=== PATIENT | female | born 1995 | race Caucasian/White ===

== ENCOUNTER 2017-03-18 21:50 | Outpatient (CLI) | payer MEDICAID ==
[2017-03-18 22:41] LABS: APPEARANCE,URINE CLEAR; BILIRUBIN,URINE NEGATIVE (NEGATIVE); GLUCOSE, URINE NEGATIVE (NEGATIVE); KETONES,URINE 80 mg/dL (NEGATIVE); LEUKOCYTE ESTERASE,URINE NEGATIVE (NEGATIVE); NITRITE,URINE NEGATIVE (NEGATIVE); PROTEIN,URINE NEGATIVE (NEGATIVE); URINE SPECIFIC GRAVITY 1.004; UROBILINOGEN,URINE NEGATIVE mg/dL (<2.0)
[2017-03-18 22:58] LABS: URINE BARBITURATES SCREEN NEGATIVE; URINE METHADONE SCREEN NEGATIVE; URINE OPIATES LOW NEGATIVE; URINE PHENCYCLIDINE SCREEN NEGATIVE
[2017-03-18] MEDS ORDERED: ONDANSETRON HCL INJ/PF 4 MG/2 ML SDV IV ONE (23:04)
[2017-03-18] MEDS ORDERED: RINGERS SOLUTION,LACTATED 1,000 ML IV PRN (23:04)
[2017-03-18] MEDS ORDERED: ONDANSETRON HCL INJ/PF 4 MG/2 ML SDV ONE (23:23)
== END 2017-03-19 00:51 | disposition home or self-care (01) ==
LOC: LC 21:50
PROVIDERS: ATTEND Obstetrics & Gynecology
PROC: 4A1HXCZ Monitoring of Products of Conception, Cardiac Rate, External Approach (ICD-10-PCS; principal; 2017-03-18)
DX: O26.892 Other specified pregnancy related conditions, second trimester (principal); R10.9 Unspecified abdominal pain; Z3A.20 20 weeks gestation of pregnancy
CPT/HCPCS: 59899; 81001; 80307; J2405

== ENCOUNTER 2017-07-30 03:33 | Inpatient (IN) | payer MEDICAID ==
[2017-07-30] MEDS ORDERED: RINGERS SOLUTION,LACTATED 300 ML IV ONE (03:51)
[2017-07-30] MEDS ORDERED: RINGERS SOLUTION,LACTATED 1,000 ML IV PRN (03:51)
[2017-07-30] MEDS ORDERED: DINOPROSTONE 10 MG VAGINAL INSERT.SR PV PRN (03:51)
[2017-07-30 04:40] LABS: ABSOLUTE EOSINOPHILS # (AUTO) 0.1 10^3/uL (0.0-0.6); ABSOLUTE LYMPHOCYTES (AUTO) 1.9 10^3/uL (0.5-4.7); ABSOLUTE MONOCYTES (AUTO) 0.7 10^3/uL (0.1-1.4); ABSOLUTE NEUT (AUTO) 4.9 10^3/uL (1.7-8.2); BASOPHILS % (AUTO) 0.4 % (0-2); HEMATOCRIT 34.7 % (36.0-47.0); HEMOGLOBIN 12.2 g/dL (12.0-15.5); HGB HCT DIFFERENCE 1.9; MEAN CORPUSCULAR HEMOGLOBIN 31.7 pg (27.0-33.4); MEAN CORPUSCULAR HGB CONC 35.1 g/dL (32.0-36.0); MEAN CORPUSCULAR VOLUME 90 fl (80-97); RED BLOOD COUNT 3.85 10^6/uL (3.72-5.28); RED CELL DISTRIBUTION WIDTH 12.3 % (11.5-14.0); SEGMENTED NEUTROPHILS % (AUTO) 64.6 % (42-78); WHITE BLOOD COUNT 7.6 10^3/uL (4.0-10.5)
[2017-07-30 04:44] LABS: APPEARANCE,URINE CLOUDY; BILIRUBIN,URINE NEGATIVE (NEGATIVE); GLUCOSE, URINE NEGATIVE (NEGATIVE); KETONES,URINE NEGATIVE (NEGATIVE); LEUKOCYTE ESTERASE,URINE LARGE (NEGATIVE); NITRITE,URINE NEGATIVE (NEGATIVE); PROTEIN,URINE NEGATIVE (NEGATIVE); UROBILINOGEN,URINE NEGATIVE mg/dL (<2.0)
[2017-07-30 04:59] LABS: URINE BARBITURATES SCREEN NEGATIVE; URINE METHADONE SCREEN NEGATIVE; URINE OPIATES LOW NEGATIVE; URINE PHENCYCLIDINE SCREEN NEGATIVE
[2017-07-30] MEDS ORDERED: DINOPROSTONE 10 MG VAGINAL INSERT.SR ONE (05:05)
[2017-07-30] MEDS ORDERED: MISOPROSTOL 0.1 MG TABLET PV ONE (17:54)
[2017-07-30] MEDS ORDERED: MISOPROSTOL 0.1 MG TABLET ONE ×2 (18:23→18:31)
[2017-07-30] MEDS ORDERED: ONDANSETRON HCL INJ/PF 4 MG/2 ML SDV IV ONE (21:01)
[2017-07-30] MEDS ORDERED: ONDANSETRON HCL INJ/PF 4 MG/2 ML SDV ONE (21:03)
[2017-07-30] MEDS ORDERED: OXYTOCIN/NORMAL SALINE 20 UNIT/1,000 ML RTUINJ IV PRN (22:19)
--- NOTE | 2017-07-30 22:32 | L&D Progress Notes ---
PROGRESS NOTES Datetime Report Generated by CPN: 07/30/2017 22:32 PROGRESS NOTE Impression: Normal Progression of Labor Procedures: Sterile Vag Exam Plan: Continue Present Management; Induction; Cervical Ripening Informed Consent Obtained: Vaginal Delivery; Risks, Benefits and Alternatives Discussed Vital Signs : Reviewed; Within Normal Limits Comment: Reviewed plan of care with pt. Cervidil at 0500 and cvx closed. 1700 cvx fingertip and Cytotec placed at 1830. Pt alley well with cytotec. Cvx now 1/50/-3 and medium consistency. Plan for ambulate/shower/eat. begin pitocin and cooks catheter in approximately 1 hour. Reassuring FWB. Cat I NST. Anticpate . IUGR 7.4% VAGINAL EXAM Dilatation: 1 Dilatation: 0 Effacement: 50 Effacement: 0 Station: -3 Station: high Contractions: q1-2 MEMBRANES Membranes: Intact Membranes: Intact FETUS A FHR - Baseline: 150 Monitoring: External US Variability: Moderate 6-25bpm Accelerations: 15X15 Decelerations: None : 39,4 Presentation: Vertex SIGNATURE SIGNATURE: [id number] Signature: with User ID: [email or web address] : I personally evaluated and examined the patient in conjunction with the MLP and agree with the assessment, treatment plan and disposition.
[2017-07-30] MEDS ORDERED: NALBUPHINE HCL INJ 10 MG/1 ML AMPULE INJ ONE (23:02)
[2017-07-30] MEDS ORDERED: NALBUPHINE HCL INJ 10 MG/1 ML AMPULE ONE (23:04)
--- NOTE | 2017-07-31 00:23 | L&D Progress Notes ---
PROGRESS NOTES Datetime Report Generated by CPN: 07/31/2017 00:23 PROGRESS NOTE Impression: Normal Progression of Labor; Reassuring Heart Rate Procedures: Sterile Vag Exam Procedures- Other: Cooks catheter placement Plan: Continue Present Management; Induction; Cervical Ripening Informed Consent Obtained: Vaginal Delivery; Risks, Benefits and Alternatives Discussed Vital Signs : Reviewed; Within Normal Limits Comment: Pt given nubain for pain control. Cvx 1/50/-3. Cooks catheter placed. Pt tolerated procedure well. 80ml/80ml placed in uterine bulb/vaginal bulb respectively. Reviewed continued plan. Continue with cervical ripening. Cooks placed and will continue with pitocin. Anticpate . VAGINAL EXAM Dilatation: 1 Effacement: 50 Station: -3 Contractions: q2-3 FETUS A FHR - Baseline: 120 Monitoring: External US Variability: Moderate 6-25bpm Accelerations: 15X15 Decelerations: None FHR Category: Category I FETUS C SIGNATURE: [id number] Signature: with User ID: [email or web address]
[2017-07-31] MEDS ORDERED: OXYTOCIN/NORMAL SALINE 0 UNIT/0 ML RTUINJ ONE (00:43)
--- NOTE | 2017-07-31 07:23 | L&D Progress Notes ---
PROGRESS NOTES Datetime Report Generated by CPN: 07/31/2017 07:22 PROGRESS NOTE Impression: Normal Progression of Labor Procedures: Sterile Vag Exam Procedures- Other: Cooks removed Plan: Induction; Cervical Ripening Informed Consent Obtained: Vaginal Delivery; Risks, Benefits and Alternatives Discussed Vital Signs : Reviewed Comment: Cooks catheter placed last evening. Pitocin continue at 12 and increase as needed. Cooks removed as it was in vagina both bulbs. Cvx now 2 and soft still posterior. Ambulation encouraged again. Pt reluctant to get out of the bed - and reluctant to get epidural. Advised patient to get out of bed. Anticipate VAGINAL EXAM Dilatation: 5 Effacement: 70 Station: -2 Contractions: q 2-3 FETUS A FHR - Baseline: 125 Monitoring: External US Variability: Moderate 6-25bpm Accelerations: 15X15 Decelerations: None FHR Category: Category I FETUS C SIGNATURE: [id number] Signature: with User ID: [email or web address]
[2017-07-31] MEDS ORDERED: MISOPROSTOL 0.2 MG TABLET ONE (09:29)
[2017-07-31] MEDS ORDERED: EPHEDRINE SULFATE INJ 50 MG/1 ML AMPULE ONE (09:29)
[2017-07-31] MEDS ORDERED: FENTANYL/BUPIVACAINE/NS/PF 200 MCG/100 ML RTUINJ EPI ONE (09:29)
[2017-07-31] MEDS ORDERED: LIDOCAINE 1% INJ-PF (10 MG/ML) 30 ML SDV ONE (09:30)
[2017-07-31] MEDS ORDERED: BUPIVACAINE HCL 0.25 % INJ/PF (2.5 MG/1 ML) 30 ML VIAL ONE (09:30)
[2017-07-31] MEDS ORDERED: OXYTOCIN/NORMAL SALINE 20 UNIT/1,000 ML RTUINJ ONE (09:30)
[2017-07-31] MEDS ORDERED: MEASLES,MUMPS&RUBELLA VACC/PF 0.5 ML VIAL SUBCUT PRN (13:50)
[2017-07-31] MEDS ORDERED: ZOLPIDEM TARTRATE 5 MG TABLET PO PRN (13:50)
[2017-07-31] MEDS ORDERED: ACETAMINOPHEN WITH CODEINE #3 TABLET PO PRN ×2 (13:50)
[2017-07-31] MEDS ORDERED: DIPH/PERTUSS(ACELL)/TETANUS VAC/PF 0.5 ML SYR (>=10YO) IM PRN (13:50)
[2017-07-31] MEDS ORDERED: BENZOCAINE/MENTHOL AEROSOL SPRAY 56 ML TOP PRN (13:50)
[2017-07-31] MEDS ORDERED: OXYTOCIN/NORMAL SALINE 20 UNIT/1,000 ML RTUINJ IV PRN (13:50)
[2017-07-31] MEDS ORDERED: DIBUCAINE 1% OINTMENT 28 GM TP PRN (13:50)
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
--- NOTE | 2017-07-31 15:09 | Delivery Summary ---
Del Sum A-C Datetime Report Generated by CPN: 07/31/2017 15:09 DELIVERY PERSONNEL DELIVERY PERSONNEL: [id number] Delivery Doctor:: Kelley Khan CNM Labor and Delivery Nurse:: Leticia Jones RN Nursery Nurse:: Latoya Perdomo RN Back Up Machine Operator/ASSOCIATE PROFESSOR OF [employer]IC: Kavitha Grimes CNA II MATERNAL INFORMATION Delivery Anesthesia: Epidural Medications After Delivery: Pitocin Drip 20 Units/1000ml NSS Estimated Blood Loss (ml): 150 Maternal Complications: None Provider Comments: SVDVM over intact perineum OA to DORIAN, vigorous to mothers abd, cord clamped x 2 cut per FOB. Placenta intact via koo. FF immediately, lacerations repaired. EBL 150. Apgars 9,9. LABOR SUMMARY EDC: 08/02/2017 00:00 No. Babies in Womb: 1 Attempted: No Labor Anesthesia: Epidural LABOR INFORMATION Reason for Induction: Intrauterine Growth Retardation Complete Dilatation: 07/31/2017 12:00 Cervical Ripening Agents: Cervidil; Rolon Balloon; Cytotec @ Oxytocin: Induction Group B Beta Strep: neg Antibiotics # of Doses: 0 Steroids Given: None Reason Steroids Not Administered: Not Applicable MEMBRANES Membranes Rupture Method: Spontaneous Rupture of Membranes: 07/31/2017 11:05 Length of Rupture (hr): 1.55 Amniotic Fluid Color: Clear Amniotic Fluid Amount: Scant Amniotic Fluid Odor: Normal STAGES OF LABOR Stage 2 hr: 0 Stage 2 min: 38 Stage 3 hr: 0 Stage 3 min: 4 VAGINAL DELIVERY Episiotomy: None Laceration #1: Perineal Laceration Extension #1: First Degree Other Laceration: 1* bilat labial Laceration Repair: Yes Laceration Repair Note: 3.0 chromic for repair Sponge Count Correct: N/A Sharps Count Correct: N/A BABY A INFORMATION Delivery Date/Time: 07/31/2017 12:38 Method of Delivery: Vaginal Born in Route : No : N/A Forceps: N/A Vacuum Extraction: N/A Shoulder Dystocia : No PRESENTATION/POSITION BABY A Presentation: Cephalic Cephalic Presentation: Vertex Vertex Position: Left Occipital Anterior Breech Presentation: N/A PLACENTA INFORMATION BABY A Placenta Delivery Time : 07/31/2017 12:42 Placenta Method of Delivery: Spontaneous Placenta Status: Delivered SCORES BABY A Heart Rate 1 min: >100 bpm Resp Effort 1 min: Good Cry Reflex Irritability 1 min: Cough or Sneeze or Pulls Away Muscle Tone 1 min: Active Motion Color 1 min: Blue/Pale Resuscitation Effort 1 min: Tactile Stimulation SCORE 1 MIN: 8 Heart Rate 5 min: >100 bpm Resp Effort 5 min: Good Cry Reflex Irritability 5 min: Cough or Sneeze or Pulls Away Muscle Tone 5 min: Active Motion Color 5 min: Body Ohlman, Extremities Blue Resuscitation Effort 5 min: N/A SCORE 5 MIN: 9 INFANT INFORMATION BABY A Gestational Age at Delivery: 39.5 Gestational Status: Full Term- 39- 40.6 Weeks Infant Outcome : Liveborn Infant Condition : Stable Sex: Male IDENTIFICATION BABY A Infant Verification Date/Time: 07/31/2017 13:09 ID Band Number: [id number] Mother's Name Verified: Yes Infant RN Verifying : Audrey Ramirez, RN Additional Verifying Personnel: Audrey Jones, RN WEIGHT/LENGTH BABY A Birthweight (gm): 2790 Weight (lb): 6 Weight (oz): 2 Length (in): 19.75 Length (cm): 50.17 CORD INFORMATION BABY A No. Cord Vessels: 3 Nuchal Cord : N/A Cord Blood Taken: Yes-For Storage (Mom's Blood type +) Suction: None ASSESSMENT BABY A Complications: Multiple Late Decels Physical Findings at Delivery: Caput Succedaneum Infant Respirations: Appears Normal Skin to Skin: Yes Purchasing And Claims Supervisor/ALS Called : No Infant Care By: Chloe PERDOMO RN Transferred To: Remains with Mother BABY B INFORMATION : N/A SIGNATURES Assignment: Luisito Lewis MD Signature: with User ID: [email or web address] : with User ID: [email or web address] : I personally evaluated and examined the patient in conjunction with the MLP and agree with the assessment, treatment plan and disposition.
[2017-07-31] MEDS: DOCUSATE SODIUM 100 MG CAPSULE PO SCH (18:11)
[2017-07-31] MEDS: FERROUS SULFATE 325 MG TABLET PO SCH (18:12)
[2017-07-31] MEDS: IBUPROFEN 800 MG TABLET PO SCH ×2 (18:36→23:56)
[2017-08-01] MEDS: IBUPROFEN 800 MG TABLET PO SCH ×3 (08:03→22:24)
[2017-08-01 08:30] LABS: MEAN CORPUSCULAR HGB CONC 34.2 g/dL (32.0-36.0); MEAN CORPUSCULAR VOLUME 91 fl (80-97); RED BLOOD COUNT 3.86 10^6/uL (3.72-5.28); RED CELL DISTRIBUTION WIDTH 12.6 % (11.5-14.0); WHITE BLOOD COUNT 9.8 10^3/uL (4.0-10.5)
--- NOTE | 2017-08-01 09:49 | PDOC PROGRESS REPORT ---
Subjective-OB Subjective: Post Delivery Day: 21 year old. Denies any needs at this time reports without difficulty, bleeding slowing, tolerating diet and pain controlled with current meds. Physical Exam (OB) Vital Signs: Temp Pulse Resp BP Pulse Ox 98.1 F 82 16 136/69 H 98 08/01/17 07:38 08/01/17 07:38 08/01/17 07:38 08/01/17 07:38 08/01/17 07:38 Intake & Output 07/31/17 08/01/17 08/02/17 06:59 06:59 06:59 Intake Total 200 Balance 200 - Abdomen Description: Soft, Round Hernia Present: No Fundal Description: Firm, Midline Fundal Height: 1/u - 2/u - Abdominal Tenderness: Nontender - Extremities Lower extremities: Jason's sign - neg Calf: Normal, Nontender Objective-Diagnostic Laboratory: 08/01/17 07:58 08/01/17 07:58 WBC 9.8 RBC 3.86 Hgb 12.0 Hct 35.0 L MCV 91 MCH 31.0 MCHC 34.2 RDW 12.6 Plt Count 144 L Assessment and Plan(PN) - Assessment and Plan (1) High risk teen in third trimester Is this a current diagnosis for this admission?: Yes (2) Intrauterine growth restriction (IUGR) affecting care of mother, third trimester, single gestation Is this a current diagnosis for this admission?: Yes (3) Vaginal delivery Is this a current diagnosis for this admission?: Yes - Time Spent with Patient Time with patient: Less than 15 minutes - Disposition Anticipated Discharge: Home Within: within 24 hours
[2017-08-01] MEDS: SENNOSIDES/DOCUSATE 8.6-50 MG 1 EACH TABLET PO SCH (10:08)
[2017-08-01] MEDS: PRENATAL VITAMIN W DHA CAPSULE PO SCH (10:08)
[2017-08-01] MEDS: FERROUS SULFATE 325 MG TABLET PO SCH ×2 (10:08→17:44)
[2017-08-01] MEDS: DOCUSATE SODIUM 100 MG CAPSULE PO SCH ×2 (10:08→17:44)
[2017-08-02] MEDS: IBUPROFEN 800 MG TABLET PO SCH (05:02)
[2017-08-02 09:27] VITALS: BP 145/74
--- NOTE | 2017-08-02 10:03 | PDOC DISCHARGE SUMMARY ---
Final Diagnosis Discharge Date: 08/02/17 - Final Diagnosis (1) High risk teen in third trimester Is this a current diagnosis for this admission?: Yes (2) Intrauterine growth restriction (IUGR) affecting care of mother, third trimester, single gestation Is this a current diagnosis for this admission?: Yes (3) Vaginal delivery Is this a current diagnosis for this admission?: Yes Discharge Data - Discharge Medication Prescriptions: Ibuprofen [Motrin 800 mg Tablet] 800 mg PO Q8 #60 tablet Home Medications: Vit/Iron Fum/Folic AC [ Tablet] 1 each PO DAILY 03/18/17 Ibuprofen [Motrin 800 mg Tablet] 800 mg PO Q8 #60 tablet 08/02/17 Reason(s) for Admission: Induction of Labor - IUGR Procedures: NST Intrapartum Procedure(s): Spontaneous Vaginal Delivery Complication(s): Laceration-Labial - Diagnosis Test Laboratory: Temp Pulse Resp BP Pulse Ox 98.1 F 80 16 145/74 H 98 08/02/17 08:54 08/02/17 08:54 08/02/17 08:54 08/02/17 08:54 08/02/17 08:54 07/30/17 07/30/17 08/01/17 03:47 04:04 07:58 RBC 3.85 3.86 Hgb 12.2 12.0 Hct 34.7 L 35.0 L Urine Opiates Screen NEGATIVE - Discharge information/Instructions Discharge Activity: Balance Activity w/Rest, Pelvic Rest Discharge Diet: Regular Disposition: HOME, SELF-CARE Follow up with: [facility] in: 4, Weeks
[2017-08-02] MEDS: SENNOSIDES/DOCUSATE 8.6-50 MG 1 EACH TABLET PO SCH (11:14)
[2017-08-02] MEDS: FERROUS SULFATE 325 MG TABLET PO SCH (11:14)
[2017-08-02] MEDS: PRENATAL VITAMIN W DHA CAPSULE PO SCH (11:14)
[2017-08-02] MEDS: DOCUSATE SODIUM 100 MG CAPSULE PO SCH (11:34)
== END 2017-08-02 13:10 | disposition home or self-care (01) | DRG 775 ==
LOC: LR 03:33 → 2S 07-31 14:51
PROVIDERS: ADMIT Obstetrics & Gynecology Gynecology; ATTEND Obstetrics & Gynecology Gynecology
PROC: 3E033VJ Introduction of Other Hormone into Peripheral Vein, Percutaneous Approach (ICD-10-PCS; 2017-07-30)
PROC: 3E0P7GC Introduction of Other Therapeutic Substance into Female Reproductive, Via Natural or Artificial Opening (ICD-10-PCS; 2017-07-30)
PROC: 4A1HXCZ Monitoring of Products of Conception, Cardiac Rate, External Approach (ICD-10-PCS; 2017-07-30)
PROC: 10E0XZZ Delivery of Products of Conception, External Approach (ICD-10-PCS; principal; 2017-07-31)
PROC: 0HQ9XZZ Repair Perineum Skin, External Approach (ICD-10-PCS; 2017-07-31)
DX: O36.5930 Maternal care for other known or suspected poor fetal growth, third trimester, not applicable or unspecified (principal); O70.0 First degree perineal laceration during delivery; O99.52 Diseases of the respiratory system complicating childbirth; J45.909 Unspecified asthma, uncomplicated; Z91.018 Allergy to other foods; Z3A.39 39 weeks gestation of pregnancy; Z37.0 Single live birth
CPT/HCPCS: 36415; 80307; 81005; 85025; 85027; 86592; 86850; 86900; 86901; 94760; C1726; J2300; J2405; J2590; J3490

== ENCOUNTER 2019-12-07 00:49 | Emergency (ER) | payer MEDICAID ==
--- NOTE | 2019-12-07 01:14 | ER Document Report ---
ED General - General Chief Complaint: Toe Injury Stated Complaint: FOOT INJURY Time Seen by Provider: 12/07/19 01:09 Primary Care Provider: MEGAN HUMPHREY MD [NO LOCAL MD] - Follow up as needed FREDO GALLARDO MD [ACTIVE STAFF] - Follow up as needed Mode of Arrival: Ambulatory Information source: Patient TRAVEL OUTSIDE OF THE [place] IN LAST 30 DAYS: No - HPI Onset: Yesterday Onset/Duration: Sudden - yesterday around 11am Quality of pain: Achy, Throbbing Severity: Moderate Pain Level: 2 Associated symptoms: Other - mild swelling, brusing of 2nd toe Exacerbated by: Movement, Walking Relieved by: Remaining still Similar symptoms previously: No Recently seen / treated by doctor: No Notes: 24 year old female with no significant PMH here in the ER for right 2nd toe pain after she accidentally kicked a door around 11am yesterday. The patient has noticed swelling and bruising and worsening pain since the accident. The patient is able to walk but it pains her to do so. - Related Data Allergies/Adverse Reactions: strawberry [[place]] Allergy (Verified 07/30/17 03:43) Past Medical History - General Information source: Patient - Social History Smoking Status: Never Smoker Chew tobacco use (# tins/day): No Frequency of alcohol use: None Drug Abuse: None Lives with: Family Family History: Reviewed & Not Pertinent Patient has suicidal ideation: No Patient has homicidal ideation: No Pulmonary Medical History: Reports: Hx Asthma Neurological Medical History: Reports: Hx Migraine GI Medical History: Reports: Hx Gastroesophageal Reflux Disease Infectious Medical History: Reports: Hx MRSA - Abscess incised 3 inches away 5 years ago - Immunizations Immunizations up to date: Yes Hx Diphtheria, Pertussis, Tetanus Vaccination: Yes Review of Systems - Review of Systems Constitutional: No symptoms reported EENT: No symptoms reported Cardiovascular: No symptoms reported Respiratory: No symptoms reported Gastrointestinal: No symptoms reported Genitourinary: No symptoms reported Female Genitourinary: No symptoms reported Musculoskeletal: Other - right 2nd toe pain, swelling, bruising Skin: No symptoms reported Hematologic/Lymphatic: No symptoms reported Neurological/Psychological: No symptoms reported -: Yes All other systems reviewed and negative Physical Exam - Vital signs Vitals: Temp 97.3 F 12/07/19 00:50 - Notes Notes: GENERAL: Well-appearing, well-nourished and in no acute distress. HEAD: Atraumatic, normocephalic. EYES: Pupils equal round and reactive to light, extraocular movements intact, sclera anicteric, conjunctiva are normal. ENT: External ears normal, nares patent, oropharynx clear without exudates. Moist mucous membranes. NECK: Normal range of motion, supple without lymphadenopathy or JVD. LUNGS: Breath sounds clear to auscultation bilaterally and equal. No wheezes rales or rhonchi. HEART: Regular rate and rhythm without murmurs, rubs or gallops. ABDOMEN: Soft, nontender, normoactive bowel sounds. No guarding, no rebound. No masses appreciated. EXTREMITIES: Right 2nd toe is bruised and swollen from DIP on to toe nail (toe nail not involved). Normal range of motion, no pitting or edema. No clubbing or cyanosis. NEUROLOGICAL: Cranial nerves II through XII grossly intact. Normal speech, normal gait. PSYCH: Normal mood, normal affect. SKIN: Warm, Dry, normal turgor, no rashes or lesions noted. Course - Re-evaluation Re-evalutation: 12/07/19 02:07 The patient seems to have an Avulsion fracture of her right 2nd toe (distal phalanx). Patient told to damian tape her toe and to use tylenol and motrin for pain. Patient referred to Orthopedics. - Vital Signs Vital signs: Temp Pulse Resp BP Pulse Ox 97.3 F 78 17 121/59 L 99 12/07/19 01:00 12/07/19 01:00 12/07/19 01:00 12/07/19 01:00 12/07/19 01:00 - Diagnostic Test Radiology reviewed: Image reviewed, Reports reviewed Discharge - Discharge Clinical Impression: Avulsion fracture Toe fracture, right Qualifiers: Encounter type: initial encounter Toe: unspecified toe Fracture type: closed Fracture alignment: nondisplaced Qualified Code(s): S92.911A - Unspecified fracture of right toe(s), initial encounter for closed fracture Condition: Stable Disposition: HOME, SELF-CARE Instructions: Damian Taping (toes) ([facility]), Fractured Toe (OM) Additional Instructions: Use Tylenol and Motrin for pain. Ice your toe as well to help with swelling. Follow up with an Orthopedic Surgeon (Dr. Gallardo). Referrals: MEGAN HUMPHREY MD [NO LOCAL MD] - Follow up as needed FREDO GALLARDO MD [ACTIVE STAFF] - Follow up as needed
--- NOTE | 2019-12-07 01:50 | RADIOLOGY REPORT (SQ) ---
EXAM DESCRIPTION: XR TOES 2 OR MORE VIEWS COMPLETED DATE/TME: 12/07/2019 01:13 CLINICAL HISTORY: 24 years, Female, eval for toe fracture COMPARISON: None. NUMBER OF VIEWS: 3 TECHNIQUE: 3 views of the right second toe LIMITATIONS: None. FINDINGS: . Joint spaces are preserved. On the lateral view, a well-corticated ossific density is seen dorsally, possibly relating a tiny accessory ossicle versus avulsion fracture. No other evidence for fracture or dislocation however. Donor site is indeterminate. IMPRESSION: Possible tiny avulsion fracture seen on the lateral view only. copyright 2010 [employer]- All Rights Reserved
[2019-12-07 02:18] VITALS: BP 123/68
== END 2019-12-07 02:19 | disposition home or self-care (01) ==
LOC: ER 00:49
DX: S92.911A Unspecified fracture of right toe(s), initial encounter for closed fracture (principal); W22.8XXA Striking against or struck by other objects, initial encounter; J45.909 Unspecified asthma, uncomplicated; Z91.018 Allergy to other foods
CPT/HCPCS: 99283